=== PATIENT | female | born 2000 | race Hispanic/Latino ===

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

== ENCOUNTER 2022-06-20 20:46 | Emergency (ER) | payer OTHER ==
[~2022-06-20] VITALS: Ht 157.5 cm; Wt 104.3 kg
[~2022-06-20 20:46] MED LIST: CIPRO500 MG PO; LEVSIN-SL0.125 MG SL; METRONIDAZOLE500 MG PO; ONDANSETRON ODT4 MG PO; PHENERGAN SUPP25 MG PR; PREDNISONE20 MG PO
[2022-06-20] MEDS ORDERED: ONDANSETRON ODT4 MG PO (23:06)
[2022-06-20] MEDS ORDERED: BACTRIM DS TAB1 EACH PO (23:07)
== END 2022-06-20 23:32 | disposition home or self-care (01) ==
LOC: FSED 21:52
DX: R11.2 Nausea with vomiting, unspecified (principal); J10.1 Influenza due to other identified influenza virus with other respiratory manifestations; N39.0 Urinary tract infection, site not specified; R10.33 Periumbilical pain; K21.9 Gastro-esophageal reflux disease without esophagitis
CPT/HCPCS: 87400; 99283